=== PATIENT | male | born 1965 | race African-American/Black ===

== ENCOUNTER 2018-08-28 23:46 | Emergency (ER) | payer MEDICAID ==
[2018-08-28 23:52] VITALS: BP 130/80
== END 2018-08-29 00:30 ==
LOC: ED 08-29 00:24
DX: B86 Scabies (principal); Z72.9 Problem related to lifestyle, unspecified; Z75.9 Unspecified problem related to medical facilities and other health care; Z63.8 Other specified problems related to primary support group
CPT/HCPCS: 99283

== ENCOUNTER 2018-09-21 15:03 | Emergency (ER) | payer MEDICAID ==
[~2018-09-21] VITALS: Ht 172.7 cm; Wt 62.4 kg
[2018-09-21] MEDS ORDERED: SODIUM CHLORIDE 0.9% 1,000 ML IV ONE (15:21)
[2018-09-21] MEDS ORDERED: SODIUM CHLORIDE FLUSH 10ML SYR IVF ONE (15:30)
[2018-09-21 16:55] LABS: BASOPHILS # (AUTO) 0.05 x10^3/uL (0-0.1); BASOPHILS % (AUTO) 1 % (0-1); EOSINOPHILS # (AUTO) 0.41 x10^3/uL (0-0.4); EOSINOPHILS % (AUTO) 7 % (1-7); LYMPHOCYTES # (AUTO) 1.94 x10^3/uL (1-3.4); LYMPHOCYTES % (AUTO) 35 % (22-44); MD NO; MEAN CORPUSCULAR HEMOGLOBIN 31.5 pg (27.5-34.5); MEAN CORPUSCULAR HGB CONC 33.8 g/dL (33.2-36.2); MEAN CORPUSCULAR VOLUME 93.2 fL (81-97); MEAN PLATELET VOLUME 7.3 fL (7.4-10.4); MONOCYTES # (AUTO) 0.35 x10^3/uL (0.2-0.8); MONOCYTES % (AUTO) 6 % (2-9); NEUTROPHILS # (AUTO) 2.79 x10^3/uL (1.8-6.8); NEUTROPHILS % (AUTO) 50 % (42-75); PLATELET COUNT 341 x10^3/uL (130-400); RED CELL DISTRIBUTION WIDTH 12.6 % (9.4-14.8)
[2018-09-21 17:05] LABS: ALANINE AMINOTRANSFERASE 31 U/L (12-78); ALBUMIN 3.6 g/dL (3.4-5.0); ANION GAP 7 mmol/L (5-15); CALCIUM 9.1 mg/dL (8.5-10.1); CHLORIDE 111 mmol/L (98-107); CREATININE 0.65 mg/dL (0.7-1.3)
[2018-09-21 17:07] LABS: ALKALINE PHOSPHATASE 110 U/L (45-117); BILIRUBIN,TOTAL 0.3 mg/dL (0.2-1.0); TOTAL PROTEIN 7.5 g/dL (6.4-8.2)
[2018-09-21 18:07] LABS: MICROSCOPIC NOT IND
[2018-09-21] MEDS ORDERED: KETOROLAC 60 MG/2 ML IVPush ONE (18:30)
[2018-09-21 18:32] LABS: CULTURE INDICATED? NO
[2018-09-21] MEDS ORDERED: KETOROLAC 30 MG/1 ML ONE (18:49)
[2018-09-21 18:53] VITALS: BP 131/75
== END 2018-09-21 19:24 | disposition home or self-care (01) ==
LOC: ED 16:48
DX: K40.91 Unilateral inguinal hernia, without obstruction or gangrene, recurrent (principal); F17.200 Nicotine dependence, unspecified, uncomplicated
CPT/HCPCS: 36415; 80053; 81003; 83690; 85025; 96374; 99283; J1885; J7030

== ENCOUNTER 2018-10-26 06:03 | Emergency (ER) | payer MEDICAID ==
[~2018-10-26] VITALS: Ht 172.7 cm; Wt 62.4 kg
[2018-10-26 06:06] VITALS: BP 110/77
[2018-10-26] MEDS ORDERED: DIPHENHYDRAMINE 25 MG CAPSULE ONE (06:17)
[2018-10-26] MEDS ORDERED: FAMOTIDINE 20 MG TABLET ONE (06:17)
[2018-10-26] MEDS ORDERED: DIPHENHYDRAMINE 25 MG CAPSULE PO ONE (06:30)
[2018-10-26] MEDS ORDERED: FAMOTIDINE 20 MG TABLET PO ONE (06:30)
== END 2018-10-26 09:16 | disposition home or self-care (01) ==
LOC: ED 06:40
DX: B86 Scabies (principal); Z72.9 Problem related to lifestyle, unspecified
CPT/HCPCS: 99283; Q0163

== ENCOUNTER 2019-03-14 19:33 | Emergency (ER) | payer MEDICAID ==
[~2019-03-14] VITALS: Ht 172.7 cm; Wt 69.9 kg
--- NOTE | 2019-03-14 20:05 | NUR ---
REPORT RECEIVED FROM DEMETRIUS NAVA, CARE ASSUMED AT THIS TIME. PT AWAITING LAB RESULTS AND US AT THIS TIME.
[2019-03-14 20:09] LABS: BASOPHILS # (AUTO) 0.02 x10^3/uL (0-0.1); BASOPHILS % (AUTO) 1 % (0-1); EOSINOPHILS # (AUTO) 0.04 x10^3/uL (0-0.4); EOSINOPHILS % (AUTO) 1 % (1-7); LYMPHOCYTES # (AUTO) 0.93 x10^3/uL (1-3.4); LYMPHOCYTES % (AUTO) 22 % (22-44); MD NO; MEAN CORPUSCULAR HEMOGLOBIN 30.8 pg (27.5-34.5); MEAN CORPUSCULAR HGB CONC 33.1 g/dL (33.2-36.2); MEAN PLATELET VOLUME 6.4 fL (7.4-10.4); MONOCYTES # (AUTO) 0.39 x10^3/uL (0.2-0.8); MONOCYTES % (AUTO) 9 % (2-9); NEUTROPHILS # (AUTO) 2.86 x10^3/uL (1.8-6.8); NEUTROPHILS % (AUTO) 67 % (42-75); PLATELET COUNT 286 x10^3/uL (130-400); RED BLOOD COUNT 3.61 x10^6/uL (4.38-5.82); RED CELL DISTRIBUTION WIDTH 13.6 % (9.4-14.8)
[2019-03-14 20:18] LABS: ALANINE AMINOTRANSFERASE 20 U/L (12-78); ALBUMIN 3.4 g/dL (3.4-5.0); ANION GAP 8 mmol/L (5-15); CALCIUM 8.3 mg/dL (8.5-10.1); CHLORIDE 109 mmol/L (98-107); CREATININE 0.66 mg/dL (0.7-1.3)
[2019-03-14 20:20] LABS: ALKALINE PHOSPHATASE 66 U/L (45-117); BILIRUBIN,TOTAL 0.4 mg/dL (0.2-1.0); TOTAL PROTEIN 6.6 g/dL (6.4-8.2)
[2019-03-14] MEDS ORDERED: DIPHENHYDRAMINE 50 MG CAPSULE ONE (21:10)
[2019-03-14] MEDS ORDERED: DIPHENHYDRAMINE 25 MG CAPSULE ONE (21:14)
--- NOTE | 2019-03-14 21:19 | NUR ---
PT PRESENTS TO ED WITH C/O ITCHY RASH THAT IS GENERALIZED. PT EXAMINED BY RN, MARIAM MADDEN AND MD LAIRD, NO RASH APPRECIATED ON EXAM. CMS INTACT TO BILATERAL LE, TRACE EDEMA NOTED TO BILATERAL LE. PT MEDICATED PER EMAR, TOLERATED WELL. PT TO BE DISCHARGED.
[2019-03-14] MEDS ORDERED: DIPHENHYDRAMINE 25 MG CAPSULE PO ONE (21:30)
[2019-03-14 21:32] VITALS: BP 133/75
== END 2019-03-14 21:37 | disposition home or self-care (01) ==
LOC: ED 21:31
DX: L29.9 Pruritus, unspecified (principal); F17.200 Nicotine dependence, unspecified, uncomplicated
CPT/HCPCS: 36415; 80053; 85025; 93971; 99284; Q0163

== ENCOUNTER 2019-11-07 08:12 | Emergency (ER) | payer MEDICAID ==
[~2019-11-07] VITALS: Ht 172.7 cm; Wt 66.9 kg
[2019-11-07 08:15] VITALS: BP 129/83
[2019-11-07 08:38] LABS: MICROSCOPIC NOT IND
[2019-11-07 08:43] LABS: CULTURE INDICATED? NO
[2019-11-07] MEDS ORDERED: CEFTRIAXONE 250 MG IM ONE (09:00)
[2019-11-07] MEDS ORDERED: AZITHROMYCIN 500 MG TABLET PO ONE (09:00)
[2019-11-07] MEDS ORDERED: LIDOCAINE-MPF 1%, 2ML ONE (09:11)
[2019-11-07] MEDS ORDERED: CEFTRIAXONE 250 MG ONE (09:11)
[2019-11-07] MEDS ORDERED: AZITHROMYCIN 500 MG TABLET ONE (09:11)
--- NOTE | 2019-11-07 10:30 | NUR ---
Patient given discharge instructions and they have confirmed that they understand the instructions. Patient ambulatory with steady gait.
== END 2019-11-07 11:14 | disposition home or self-care (01) ==
LOC: ED 10:50
DX: A64 Unspecified sexually transmitted disease (principal)
CPT/HCPCS: 36415; 81003; 87491; 87591; 87806; 96372; 99283; J0696; G0475

== ENCOUNTER 2019-11-11 12:14 | Emergency (ER) | payer MEDICAID ==
[~2019-11-11] VITALS: Ht 172.7 cm; Wt 67.9 kg
[2019-11-11 12:19] VITALS: BP 93/72
--- NOTE | 2019-11-11 12:58 | NUR ---
PSYCH EVAL IN PROGRESS
== END 2019-11-11 13:50 | disposition home or self-care (01) ==
LOC: ED 13:40
DX: F06.2 Psychotic disorder with delusions due to known physiological condition (principal); F20.9 Schizophrenia, unspecified; F17.200 Nicotine dependence, unspecified, uncomplicated
CPT/HCPCS: 99284

== ENCOUNTER 2019-11-26 08:13 | Emergency (ER) | payer MEDICAID ==
[~2019-11-26] VITALS: Ht 172.7 cm; Wt 66.2 kg
--- NOTE | 2019-11-26 09:13 | NUR ---
WEAVER NEEDLE LOOM: PT TO ROOM FROM LOBBY
[2019-11-26 10:31] LABS: BASOPHILS # (AUTO) 0.03 x10^3/uL (0-0.1); BASOPHILS % (AUTO) 1 % (0-1); EOSINOPHILS # (AUTO) 0.02 x10^3/uL (0-0.4); EOSINOPHILS % (AUTO) 1 % (1-7); LYMPHOCYTES # (AUTO) 1.14 x10^3/uL (1-3.4); LYMPHOCYTES % (AUTO) 32 % (22-44); MD NO; MEAN CORPUSCULAR HEMOGLOBIN 31.5 pg (27.5-34.5); MEAN CORPUSCULAR HGB CONC 33.9 g/dL (33.2-36.2); MEAN PLATELET VOLUME 7.6 fL (7.4-10.4); MONOCYTES # (AUTO) 0.24 x10^3/uL (0.2-0.8); MONOCYTES % (AUTO) 7 % (2-9); NEUTROPHILS # (AUTO) 2.12 x10^3/uL (1.8-6.8); NEUTROPHILS % (AUTO) 60 % (42-75); PLATELET COUNT 272 x10^3/uL (130-400)
[2019-11-26 10:37] LABS: ALBUMIN 3.4 g/dL (3.4-5.0); ANION GAP 5 mmol/L (5-15); CALCIUM 8.9 mg/dL (8.5-10.1); CHLORIDE 109 mmol/L (98-107)
[2019-11-26 10:40] LABS: ALKALINE PHOSPHATASE 56 U/L (45-117); BILIRUBIN,TOTAL 0.8 mg/dL (0.2-1.0); CREATININE 0.85 mg/dL (0.7-1.3); TOTAL PROTEIN 6.5 g/dL (6.4-8.2)
[2019-11-26 10:42] LABS: ALANINE AMINOTRANSFERASE < 6 U/L (12-78)
[2019-11-26 11:00] VITALS: BP 94/64
== END 2019-11-26 11:32 | disposition home or self-care (01) ==
LOC: ED 11:03
DX: R11.2 Nausea with vomiting, unspecified (principal); R19.7 Diarrhea, unspecified
CPT/HCPCS: 36415; 80053; 83690; 85025; 99283

== ENCOUNTER 2020-01-04 16:21 | Emergency (ER) | payer MEDICAID ==
[~2020-01-04] VITALS: Ht 172.7 cm; Wt 62.0 kg
[2020-01-04 16:37] VITALS: BP 93/65
[2020-01-04] MEDS ORDERED: AZITHROMYCIN 500 MG TABLET ONE (17:10)
[2020-01-04] MEDS ORDERED: CEFTRIAXONE 250 MG ONE (17:10)
[2020-01-04 17:22] LABS: MICROSCOPIC NOT IND
[2020-01-04 17:23] LABS: CULTURE INDICATED? NO
[2020-01-04] MEDS ORDERED: CEFTRIAXONE 250 MG IM ONE (17:30)
[2020-01-04] MEDS ORDERED: AZITHROMYCIN 500 MG TABLET PO ONE (17:30)
== END 2020-01-04 18:36 | disposition home or self-care (01) ==
LOC: ED 18:21
DX: N34.1 Nonspecific urethritis (principal)
CPT/HCPCS: 81003; 87491; 87591; 96372; 99283; J0696

== ENCOUNTER 2020-01-10 08:46 | Emergency (ER) | payer MEDICAID ==
[~2020-01-10] VITALS: Ht 172.7 cm; Wt 63.0 kg
[2020-01-10 08:55] VITALS: BP 101/73
--- NOTE | 2020-01-10 09:24 | NUR ---
BENCH ASSEMBLER: PT AMBULATORY TO ROOM FROM LOBBY
--- NOTE | 2020-01-10 10:03 | NUR ---
Patient given discharge instructions and they have confirmed that they understand the instructions. Patient ambulatory with steady gait.
== END 2020-01-10 10:04 | disposition home or self-care (01) ==
LOC: ED 09:28
DX: Z00.00 Encounter for general adult medical examination without abnormal findings (principal)
CPT/HCPCS: 99281

== ENCOUNTER 2020-01-17 08:36 | Emergency (ER) | payer MEDICAID ==
[~2020-01-17] VITALS: Ht 172.7 cm; Wt 63.0 kg
[2020-01-17 08:43] VITALS: BP 93/70
--- NOTE | 2020-01-17 09:14 | NUR ---
arti farmer to bs for assessment. awaiting orders.
--- NOTE | 2020-01-17 09:37 | NUR ---
pt left prior to receiving dc papers.
== END 2020-01-17 09:38 | disposition home or self-care (01) ==
LOC: ED 09:06
DX: B00.9 Herpesviral infection, unspecified (principal); F17.200 Nicotine dependence, unspecified, uncomplicated
CPT/HCPCS: 99281

== ENCOUNTER 2020-02-01 10:43 | Emergency (ER) | payer MEDICAID ==
[~2020-02-01] VITALS: Ht 172.7 cm; Wt 65.0 kg
[2020-02-01 10:49] VITALS: BP 102/67
== END 2020-02-01 11:23 | disposition home or self-care (01) ==
LOC: ED 11:07
DX: B37.9 Candidiasis, unspecified (principal); Z72.9 Problem related to lifestyle, unspecified; F17.200 Nicotine dependence, unspecified, uncomplicated; Z59.0 Homelessness
CPT/HCPCS: 99282

== ENCOUNTER 2020-02-04 15:40 | Emergency (ER) | payer MEDICAID ==
[~2020-02-04] VITALS: Ht 172.7 cm; Wt 69.9 kg
[2020-02-04 15:49] VITALS: BP 120/90
--- NOTE | 2020-02-04 18:51 | NUR ---
PT HERE FOR HIV TEST, HAD NEGATIVE HIV TEST IN 10/2019
--- NOTE | 2020-02-04 18:53 | NUR ---
PROVIDER TO BEDSIDE, PT TO BE DC.
--- NOTE | 2020-02-04 20:54 | NUR ---
Patient/Caregiver given discharge instructions and they have confirmed that they understand the instructions. Patient ambulatory with steady gait.
== END 2020-02-04 20:55 | disposition home or self-care (01) ==
LOC: ED 17:55
DX: Z11.4 Encounter for screening for human immunodeficiency virus [HIV] (principal); Z00.00 Encounter for general adult medical examination without abnormal findings
CPT/HCPCS: 99281

== ENCOUNTER 2020-02-06 15:49 | Emergency (ER) | payer MEDICAID ==
[~2020-02-06] VITALS: Ht 172.7 cm; Wt 64.0 kg
--- NOTE | 2020-02-06 16:11 | NUR ---
54 Y/O MALE PRESENTS TO ED WITH C/O "I NEED TO GET AN HIV TEST. I HAVE A FRIEND WHO HAS IT." PT RESTING ON [place]., YIFAN.
--- NOTE | 2020-02-06 16:59 | NUR ---
Patient/Caregiver given discharge instructions and they have confirmed that they understand the instructions. Patient ambulatory with steady gait. PT LEFT WITH ALL PERSONAL BELONGINGS.
[2020-02-06 17:00] VITALS: BP 99/64
== END 2020-02-06 17:10 | disposition home or self-care (01) ==
LOC: ED 16:45
DX: R21 Rash and other nonspecific skin eruption (principal); F17.210 Nicotine dependence, cigarettes, uncomplicated; Z00.00 Encounter for general adult medical examination without abnormal findings
CPT/HCPCS: 99283; 99406

== ENCOUNTER 2020-02-14 12:28 | Emergency (ER) | payer MEDICAID ==
[~2020-02-14] VITALS: Ht 172.7 cm; Wt 64.7 kg
[2020-02-14 14:41] VITALS: BP 108/76
--- NOTE | 2020-02-14 14:48 | NUR ---
Patient/Caregiver given discharge instructions and they have confirmed that they understand the instructions. Patient ambulatory with steady gait.
== END 2020-02-14 14:49 | disposition home or self-care (01) ==
LOC: ED 14:38
DX: L24.9 Irritant contact dermatitis, unspecified cause (principal)
CPT/HCPCS: 99282

== ENCOUNTER 2020-02-18 09:14 | Emergency (ER) | payer MEDICAID ==
[~2020-02-18] VITALS: Ht 172.7 cm; Wt 64.5 kg
[2020-02-18 09:19] VITALS: BP 110/67
== END 2020-02-18 09:59 | disposition home or self-care (01) ==
LOC: ED 09:28
DX: R21 Rash and other nonspecific skin eruption (principal); Z76.0 Encounter for issue of repeat prescription
CPT/HCPCS: 99281

== ENCOUNTER 2020-03-04 13:50 | Emergency (ER) | payer MEDICAID ==
[~2020-03-04] VITALS: Ht 172.7 cm; Wt 65.4 kg
[2020-03-04 13:53] VITALS: BP 93/70
== END 2020-03-04 14:26 | disposition home or self-care (01) ==
LOC: ED 14:15
DX: B00.9 Herpesviral infection, unspecified (principal); F17.200 Nicotine dependence, unspecified, uncomplicated; Z76.0 Encounter for issue of repeat prescription
CPT/HCPCS: 99281

== ENCOUNTER 2020-04-12 11:51 | Emergency (ER) | payer MEDICAID ==
[~2020-04-12] VITALS: Ht 177.8 cm; Wt 64.6 kg
[2020-04-12 11:59] VITALS: BP 110/82
== END 2020-04-12 12:55 | disposition home or self-care (01) ==
LOC: ED 12:54
DX: K12.1 Other forms of stomatitis (principal); Z87.891 Personal history of nicotine dependence
CPT/HCPCS: 99282

== ENCOUNTER 2020-05-26 10:37 | Emergency (ER) | payer MEDICAID ==
[~2020-05-26] VITALS: Ht 172.7 cm; Wt 63.2 kg
[2020-05-26 10:41] VITALS: BP 91/69
== END 2020-05-26 11:19 | disposition home or self-care (01) ==
LOC: ED 11:00
DX: A60.01 Herpesviral infection of penis (principal)
CPT/HCPCS: 99281

== ENCOUNTER 2020-10-18 16:46 | Emergency (ER) | payer MEDICAID ==
[~2020-10-18] VITALS: Ht 172.7 cm; Wt 67.8 kg
[2020-10-18] MEDS ORDERED: DIVA250T14 PO (17:05)
[2020-10-18] MEDS ORDERED: TRAZ150T62 PO (17:05)
[2020-10-18] MEDS ORDERED: VALA10007 PO (17:05)
[2020-10-18] MEDS ORDERED: ESCI5TAB7 PO (17:05)
--- NOTE | 2020-10-18 17:06 | NUR ---
Abdirashid SANCHEZ in to evaluate pt. Pt reports he is here to "get his blood checked." Pt denies pain or other medical complaint. Pt resting in bed,
[2020-10-18 17:27] LABS: BASOPHILS % (AUTO) 1 % (0-1); EOSINOPHILS % (AUTO) 2 % (1-7); LYMPHOCYTES % (AUTO) 43 % (22-44); MEAN CORPUSCULAR HEMOGLOBIN 32.6 pg (27.5-34.5); MEAN CORPUSCULAR HGB CONC 34.6 g/dL (33.2-36.2); MEAN PLATELET VOLUME 7.5 fL (7.4-10.4); MONOCYTES % (AUTO) 10 % (2-9); NEUTROPHILS % (AUTO) 44 % (42-75); PLATELET COUNT 233 x10^3/uL (130-400); RED BLOOD COUNT 3.93 x10^6/uL (4.38-5.82); RED CELL DISTRIBUTION WIDTH 12.5 % (9.4-14.8)
[2020-10-18 17:32] LABS: MD NO
[2020-10-18 17:41] LABS: ALBUMIN 3.7 g/dL (3.4-5.0); CALCIUM 8.7 mg/dL (8.5-10.1); CREATININE 0.84 mg/dL (0.7-1.3)
[2020-10-18 17:54] LABS: ANION GAP 2 mmol/L (5-15); CHLORIDE 109 mmol/L (98-107)
--- NOTE | 2020-10-18 18:10 | NUR ---
MD AT BEDSIDE TO UPDATE PT ON POC.
--- NOTE | 2020-10-18 18:32 | NUR ---
JHOAN RN: DISCHARGED PT FOR PRIMARY RN.
[2020-10-18 18:33] VITALS: BP 111/72
== END 2020-10-18 18:35 | disposition home or self-care (01) ==
LOC: ED 17:44
DX: R79.9 Abnormal finding of blood chemistry, unspecified (principal)
CPT/HCPCS: 36415; 80048; 82040; 85025; 99283